=== PATIENT | male | born 1940 | race Caucasian/White ===

== ENCOUNTER 2017-11-02 11:05 | Outpatient (CLI) | payer MEDICARE ==
[2017-11-02 11:25] LABS: #Basophils 0.1 thou/uL (0.0-0.2); #Eosinphils 0.3 thou/uL (0.0-0.7); #Lymphocytes 2.5 thou/uL (1.20-3.40); #Monocytes 0.5 thou/uL (0.11-0.59); #Neutrophils 4.2 thou/uL (1.40-6.50); %Basophils 1.3 % (0.0-1.0); %Lymphocytes 33.5 % (21.0-51.0); %Monocytes 5.9 % (0.0-10.0); %Neutrophils 55.3 % (42.0-75.0); Hemoglobin 14.9 g/dL (14.0-18.0); Mean Corpuscular HGB CONC 32.7 g/dL (32.0-36.0); Mean Corpuscular Hemoglobin 28.5 pg (27.0-31.0); Mean Corpuscular Volume 87.1 fl (80.0-94.0); Mean Platelet Volume 8.8 fL (7.4-10.4); Platelet Count 150 thou/uL (130-400); RBC Distribution Width 12.3 % (11.5-14.5); Red Blood Cell (RBC) Count 5.25 mill/uL (4.70-6.10); White Blood Cell (WBC) Count 7.6 thou/uL (4.8-10.8)
[2017-11-02 11:35] LABS: ALT (SGPT) 18 U/L (8-55); AST (SGOT) 19 U/L (5-34); Albumin 4.1 g/dL (3.4-4.8); Alkaline Phosphatase 137 U/L (40-150); Anion Gap 11 mmol/L (10-20); BUN (Urea Nitrogen) 22 mg/dL (8.4-25.7); Bilirubin, Total 0.9 mg/dL (0.2-1.2); Calc. Creatinine Clearance 0 mL/min (70-130); Calcium 9.6 mg/dL (7.8-10.44); Carbon Dioxide 27 mmol/L (23-31); Chloride 107 mmol/L (98-107); Estimated GFR-MDRD 74; Glucose 94 mg/dL (83-110); Potassium 4.4 mmol/L (3.5-5.1); Protein, Total 7.1 g/dL (5.8-8.1); Sodium 141 mmol/L (136-145)
--- NOTE | 2017-11-02 12:39 | RAD ---
FOUR VIEWS LUMBAR SPINE INCLUDING FLEXION AND EXTENSION VIEWS: Date: 11-02-17 History: Posterior right hip pain. Low back pain. Symptoms present for a couple of weeks. Comparison: 05-26-15 FINDINGS: Again noted is left convex rotoscoliosis of the thoracolumbar spine. Multilevel degenerative changes are again present in the spine. There is suggestion of trace grade I anterolisthesis of L4 on L5 on f lexion which corrects with extension. No additional level of subluxation is seen. There are prominent facet degenerative changes at this level. Intervertebral body heights are within normal limits. Mult ilevel osteophytes are seen, primarily in the lower thoracic and upper lumbar spine. Vascular calcifi cations are seen in the abdominal aorta and iliac arteries. Phleboliths overlie the left hemipelvis. IMPRESSION: 1. Left convex rotoscoliosis thoracolumbar spine. 2. Multilevel degenerative changes lumbar spine not significantly progressed from prior exam. 3. Trace anterolisthesis of L4 on L5 on flexion which corrects with extension. POS: SHANNON
--- NOTE | 2017-11-02 12:43 | RAD ---
RIGHT HIP TWO VIEWS: HISTORY: Low back pain and hip pain for the past couple weeks. COMPARISON: Abdominal series from 05/26/2015. FINDINGS: Two views of the right hip show no evidence of acute fracture or dislocation. There is an abnormal appearance to the trabecular pattern in the right hemipelvis. This is stable compared to the prior e xamination. No significant bony widening or expansion is seen. No significant degenerative change i s seen in the right hip. IMPRESSION: 1. No significant right hip degenerative change. 2. 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 POS: LEONOR
== END 2017-11-02 11:06 | disposition home or self-care (01) ==
LOC: SCSRAD 11:05
PROVIDERS: ATTEND Family Medicine
DX: M25.551 Pain in right hip (principal); R53.83 Other fatigue; M47.896 Other spondylosis, lumbar region; M43.16 Spondylolisthesis, lumbar region; M41.9 Scoliosis, unspecified
CPT/HCPCS: 36415; 72110; 80053; 84443; 85025